=== PATIENT | female | born 1965 | race Caucasian/White ===

== ENCOUNTER 2019-04-09 14:57 | Emergency (ER) | payer BC, OTHER ==
--- NOTE | 2019-04-09 15:46 | ED ---
General Adult HPI - General Chief complaint: Fall Stated complaint: fall Time Seen by Provider: 04/09/19 15:00 Source: patient, RN notes reviewed, old records reviewed Mode of arrival: ambulatory Limitations: no limitations - History of Present Illness Initial comments: This is a 53-year-old female presents emergency department after having fallen downstairs. Patient states her heel got caught on the steps and she fell forward and twisted around and landed mostly on her right upper extremity. Patient states she did hit her head quite hard on the concrete steps. Patient states she saw stars but she did not lose consciousness. Patient states she still has headache this time. Patient denies any neck pain patient states she has full range of motion of her neck without eliciting any pain. Patient complains of a little shoulder pain but also has elbow and wrist pain on the right. Patient denies any chest or back pain. Patient denies abdominal pain. Patient denies any left upper extremity pain. Patient denies any hip or lower extremity pain. - Related Data Allergies Allergy/AdvReac Type Severity Reaction Status Date / Time Sulfa (Sulfonamide Allergy Rash/Hives Verified 04/09/19 15:04 Antibiotics) Review of Systems ROS Statement: Those systems with pertinent positive or pertinent negative responses have been documented in the HPI. ROS Other: All systems not noted in ROS Statement are negative. Past Medical History Past Medical History: No Reported History History of Any Multi-Drug Resistant Organisms: None Reported Past Surgical History: Appendectomy, Section Past Psychological History: No Psychological Hx Reported Smoking Status: Never smoker Past Alcohol Use History: Occasional Past Drug Use History: None Reported General Exam - General Exam Comments Initial Comments: GENERAL: Patient is well-developed and well-nourished. Patient is nontoxic and well- hydrated and is in mild distress. Patient has a large hematoma to the occipital region just to the right of midline. Diameter is approximately 3 cm ENT: Neck is soft and supple. No significant lymphadenopathy is noted. Oropharynx is clear. Moist mucous membranes. Neck has full range of motion without eliciting any pain. EYES: The sclera were anicteric and conjunctiva were pink and moist. Extraocular movements were intact and pupils were equal round and reactive to light. Eyelids were unremarkable. ABDOMEN: Soft and nontender with normal bowel sounds. SKIN: Skin is clear with no lesions or rashes and otherwise unremarkable. NEUROLOGIC: Patient is alert and oriented x3. Cranial nerves II through XII are grossly intact. Motor and sensory are also intact. Normal speech, volume and content. Symmetrical smile. MUSCULOSKELETAL: Anterior shoulder tenderness. Patient has tenderness on the lateral aspect of the elbow and has tenderness on the lateral aspect of the wrist in the distal radius area. Patient has no hand pain. Patient has no other extremity pain. Patient has no scaphoid tenderness. LYMPHATICS: No significant lymphadenopathy is noted PSYCHIATRIC: Normal psychiatric evaluation. Limitations: no limitations Course Vital Signs 04/09/19 15:02 Temperature 98.1 F Pulse Rate 101 H Respiratory 20 Rate Blood Pressure 116/78 O2 Sat by Pulse 97 Oximetry Medical Decision Making - Medical Decision Making CT of the brain and C-spine are negative. CT of the shoulder elbow and wrist show no fracture. Patient continues to have no tenderness in the scaphoid region Disposition Clinical Impression: Fall, Contusion of forearm, right, Wrist sprain Disposition: HOME SELF-CARE Condition: Good Instructions (If sedation given, give patient instructions): Contusion in Adults (ED), Fall Prevention (ED), Wrist Sprain (ED) Additional Instructions: Patient should take Motrin and Tylenol when necessary for pain. Patient should follow-up if the pain continues and does not improve. Is patient prescribed a controlled substance at d/c from ED?: No Referrals: Wenceslao Edgar III, MD [Primary Care Provider] - 1-2 days Time of Disposition: 16:58
--- NOTE | 2019-04-09 16:36 | XR ---
EXAMINATION TYPE: XR wrist complete RT DATE OF EXAM: 04/09/2019 CLINICAL HISTORY: pain TECHNIQUE: Frontal, lateral and oblique images of the right wrist are obtained. COMPARISON: None. FINDINGS: There is no acute fracture/dislocation evident. The joint spaces appear within normal limits. The o verlying soft tissue appears unremarkable. IMPRESSION: There is no acute fracture or dislocation seen. ICD 10 NO FRACTURE, INITIAL EVALUATION
--- NOTE | 2019-04-09 16:37 | XR ---
EXAMINATION TYPE: XR shoulder complete RT DATE OF EXAM: 04/09/2019 CLINICAL HISTORY: pain TECHNIQUE: Three views of the right shoulder are obtained. COMPARISON: None FINDINGS: There is no acute fracture/dislocation evident. The acromioclavicular and glenohumeral sheri int spaces appear within normal limits. The visualized ribs are intact and unremarkable. IMPRESSION: 1. There is no acute fracture or dislocation. ICD 10 NO FRACTURE, INITIAL EVALUATION
--- NOTE | 2019-04-09 16:37 | XR ---
EXAMINATION TYPE: XR elbow complete RT DATE OF EXAM: 04/09/2019 CLINICAL HISTORY: pain TECHNIQUE: Frontal, lateral and oblique images of the right elbow are obtained. COMPARISON: None. FINDINGS: There is no acute fracture/dislocation evident of the elbow. No abnormal fat pad signs ar e seen. The overlying soft tissue appears unremarkable. IMPRESSION: There is no acute fracture or dislocation of the elbow. ICD 10 NO FRACTURE, INITIAL EVALUATION
--- NOTE | 2019-04-09 16:41 | CT ---
EXAMINATION TYPE: CT brain frida bailey DATE OF EXAM: 04/09/2019 COMPARISON: None HISTORY: Fall down stairs. Posterior head injury. CT DLP: [address] of the brain was performed. The ventricles, basal cisterns and sulci overlying the cerebral convexities demonstrate mild enlargem ent. There is no evidence for intracranial hemorrhage or sulcal effacement. There is decreased attenuatio n about the periventricular white matter and deep white matter of both cerebral hemispheres, compatib le with chronic small vessel ischemia. No mass effects are seen. If symptoms persist consider MRI. Osseous calvarium is intact. Posterior right occipital scalp hematoma. IMPRESSION: 1. Age related atrophic and chronic small vessel ischemic change without acute intracranial process seen at this time. CT Cervical Spine: Unenhanced CT of the cervical spine was performed with bone and soft tissue window settings submitted . Coronal and sagittal reconstruction is obtained. There is normal alignment and prevertebral soft tissues. No evidence for acute cervical fracture . Scattered degenerative disc disease and spondylosis. Biapical scarring. IMPRESSION: 1. No evidence for acute fracture or subluxation of the cervical spine.
[2019-04-09 17:13] VITALS: BP 120/81; PULSE 90; RESP 18; TEMP 98
== END 2019-04-09 17:10 | disposition home or self-care (01) ==
LOC: EC 14:57
DX: S63.501A Unspecified sprain of right wrist, initial encounter (principal); S50.11XA Contusion of right forearm, initial encounter; S00.03XA Contusion of scalp, initial encounter; M25.511 Pain in right shoulder; M25.521 Pain in right elbow; Z88.2 Allergy status to sulfonamides; W10.9XXA Fall (on) (from) unspecified stairs and steps, initial encounter; Y92.009 Unspecified place in unspecified non-institutional (private) residence as the place of occurrence of the external cause; Y99.0 Civilian activity done for income or pay
CPT/HCPCS: 70450; 72125; 99284